=== PATIENT | male | born 1990 | race American Indian/Alaskan Native ===

== ENCOUNTER 2019-11-01 12:59 | Emergency (ER) | payer OTHER ==
[2019-11-01 13:26] VITALS: BP 123/71
--- NOTE | 2019-11-01 13:26 | Event Note ---
ED Screening Note Date of service: 11/01/19 Time: 13:23 ED Screening Note: 29 y o male presents cc of lower butt pain that radiates to right thigh worsening today pt denies injuries trauma, fall or urinary symptoms. pt states pain worsens with lifting right leg he denies loos of sensation or problems walking or using the restroom This initial assessment/diagnostic orders/clinical plan/treatment(s) is/are subject to change based on patients health status, clinical progression and re-assessment by fellow clinical providers in the ED. Further treatment and workup at subsequent clinical providers discretion. Patient/guardian urged not to elope from the ED as their condition may be serious if not clinically assessed and managed. Initial orders include: Pt presents with a non-medical emergency Examination is normal, Vital sign are stable Pt undertands that he should follow up with orthopedics as refferred as well as neurology Pt is ambulatory with no distress Pt given information for clinics to follow up with pcp for further treatment and evaluation Also discussed strict return precautions in detail with pt who verbalized understanding
== END 2019-11-01 14:00 | disposition left against medical advice (07) ==
LOC: ED 12:59
DX: M79.10 Myalgia, unspecified site (principal); Z53.21 Procedure and treatment not carried out due to patient leaving prior to being seen by health care provider

== ENCOUNTER 2022-04-02 08:03 | Emergency (ER) | payer SELFPAY ==
[2022-04-02 08:20] VITALS: BP 118/72
== END 2022-04-02 11:00 | disposition left against medical advice (07) ==
LOC: ED 08:03
DX: M54.9 Dorsalgia, unspecified (principal); Z53.21 Procedure and treatment not carried out due to patient leaving prior to being seen by health care provider